=== PATIENT | female | born 1970 | race Caucasian/White ===

== ENCOUNTER 2019-03-05 23:24 | Emergency (ER) | payer OTHER ==
[~2019-03-05] VITALS: Ht 170.2 cm; Wt 94.7 kg
[~2019-03-05 23:24] MED LIST: CYMBALTA60 MG PO; MOTION RELIEF25 MG PO
[2019-03-05] MEDS ORDERED: NEURONTIN100 MG PO (23:42)
[2019-03-05] MEDS ORDERED: CELEBREX 200 M200 M1 PO (23:42)
[2019-03-05] MEDS ORDERED: FLEXERIL PO (23:43)
[2019-03-06 00:04] LABS: ABSOLUTE BASOPHILS 0.1 thou/uL (0.0-0.2); ABSOLUTE EOSINOPHILS 0.7 thou/uL (0.0-0.7); ABSOLUTE LYMPHOCYTES 2.8 thou/uL (0.8-5.3); ABSOLUTE MONOCYTES 0.5 thou/uL (0.0-1.2); ABSOLUTE NEUTROPHILS 3.9 thou/uL (1.6-8.1); BASOPHILS 1.3 %; EOSINOPHILS 8.8 %; HEMATOCRIT 43.1 % (37.0-47.0); LYMPHOCYTES 34.9 %; MCH 31.1 pg (26.0-34.0); MCHC 34.8 g/dL (28.0-37.0); MCV 89.2 fL (80.0-100.0); MONOCYTES 6.3 %; MPV 9.4 fl. (7.2-11.1); NUCLEATED RBCS 0 /100WBC; PLATELET COUNT* 216 thou/uL (150-400); POLYS 48.7 %; RBC 4.83 mil/uL (4.20-5.00); RDW-CV 12.9 % (10.5-14.5)
[2019-03-06 00:09] LABS: CALCIUM 9.2 mg/dL (8.5-10.1); POTASSIUM 3.9 mmol/L (3.5-5.1)
[2019-03-06 00:13] LABS: TOTAL BILIRUBIN 0.3 mg/dL (<0.1-1.0); TOTAL PROTEIN 7.8 g/dL (6.4-8.2)
[2019-03-06 00:55] LABS: URINE BILIRUBIN NEGATIVE (Negative); URINE BLOOD NEGATIVE (Negative); URINE CLARITY CLEAR; URINE COLOR YELLOW; URINE GLUCOSE-RANDOM NEGATIVE (Negative); URINE KETONES NEGATIVE (Negative); URINE LEUKOCYTES-REFLEX NEGATIVE (Negative); URINE NITRITE-REFLEX NEGATIVE (Negative); URINE PROTEIN NEGATIVE (Negative); URINE SPECIFIC GRAVITY <= 1.005 (1.005-1.030); URINE UROBILINOGEN 0.2 E.U./dl (0.2-1.0)
[2019-03-06 01:22] VITALS: BP 139/84
== END 2019-03-06 01:22 | disposition home or self-care (01) ==
LOC: M.ERS 23:24
PROVIDERS: Emergency Medicine
DX: M54.9 Dorsalgia, unspecified (principal); F32.9 Major depressive disorder, single episode, unspecified; F41.9 Anxiety disorder, unspecified; Z90.49 Acquired absence of other specified parts of digestive tract; Z90.710 Acquired absence of both cervix and uterus; Z88.5 Allergy status to narcotic agent; Z88.1 Allergy status to other antibiotic agents; Z91.040 Latex allergy status

== ENCOUNTER 2019-03-12 05:44 | Emergency (ER) | payer OTHER ==
[~2019-03-12] VITALS: Ht 170.2 cm; Wt 96.7 kg
[~2019-03-12 05:44] MED LIST changes: +CELEBREX 200 M200 M1 PO; +FLEXERIL PO; +NEURONTIN100 MG PO
[2019-03-12 06:34] LABS: ABSOLUTE BASOPHILS 0.1 thou/uL (0.0-0.2); ABSOLUTE EOSINOPHILS 0.7 thou/uL (0.0-0.7); ABSOLUTE LYMPHOCYTES 3.2 thou/uL (0.8-5.3); ABSOLUTE MONOCYTES 0.6 thou/uL (0.0-1.2); ABSOLUTE NEUTROPHILS 4.8 thou/uL (1.6-8.1); BASOPHILS 1.3 %; EOSINOPHILS 7.5 %; HEMOGLOBIN 14.3 gm/dL (12.0-15.0); LYMPHOCYTES 34.3 %; MCH 30.8 pg (26.0-34.0); MCHC 34.9 g/dL (28.0-37.0); MCV 88.2 fL (80.0-100.0); MONOCYTES 6.2 %; MPV 9.4 fl. (7.2-11.1); NUCLEATED RBCS 0 /100WBC; PLATELET COUNT* 214 thou/uL (150-400); POLYS 50.7 %; RBC 4.65 mil/uL (4.20-5.00); RDW-CV 12.9 % (10.5-14.5); WBC 9.4 thou/uL (4.0-11.0)
[2019-03-12 06:36] LABS: CALCIUM 8.9 mg/dL (8.5-10.1); POTASSIUM 3.2 mmol/L (3.5-5.1)
[2019-03-12 06:40] LABS: ALBUMIN 3.9 g/dL (3.4-5.0); TOTAL BILIRUBIN 0.4 mg/dL (<0.1-1.0)
[2019-03-12 07:03] VITALS: BP 146/94
== END 2019-03-12 07:03 | disposition home or self-care (01) ==
LOC: M.ERS 05:44
PROVIDERS: Family Medicine
DX: R10.32 Left lower quadrant pain (principal); M54.9 Dorsalgia, unspecified; R42 Dizziness and giddiness; F32.9 Major depressive disorder, single episode, unspecified; F41.9 Anxiety disorder, unspecified; Z88.5 Allergy status to narcotic agent; Z88.1 Allergy status to other antibiotic agents; Z91.040 Latex allergy status; Z90.710 Acquired absence of both cervix and uterus; Z90.49 Acquired absence of other specified parts of digestive tract

== ENCOUNTER 2019-03-24 06:50 | Emergency (ER) | payer OTHER ==
[~2019-03-24] VITALS: Ht 172.7 cm; Wt 93.0 kg
[2019-03-24] MEDS ORDERED: COLACE 100 MG100 MG PO (07:58)
[2019-03-24] MEDS ORDERED: CITRATE OF MAG296 M1 PO (07:58)
[2019-03-24] MEDS ORDERED: MEDROLDOSEPACK PO (07:58)
[2019-03-24] MEDS ORDERED: TORADOL 10 MG T10 MG PO (07:58)
[2019-03-24 08:04] VITALS: BP 125/60
== END 2019-03-24 08:04 | disposition home or self-care (01) ==
LOC: M.ERS 06:50
DX: M54.5 Low back pain (principal); K59.00 Constipation, unspecified; F41.9 Anxiety disorder, unspecified; F32.9 Major depressive disorder, single episode, unspecified; Z88.5 Allergy status to narcotic agent; Z88.1 Allergy status to other antibiotic agents; Z91.040 Latex allergy status; Z90.710 Acquired absence of both cervix and uterus; Z90.49 Acquired absence of other specified parts of digestive tract